=== PATIENT | female | born 1985 | race Caucasian/White ===

== ENCOUNTER 2017-09-22 11:31 | Emergency (ER) | payer OTHER ==
[~2017-09-22] VITALS: Ht 160 cm; Wt 50.8 kg
[2017-09-22 12:30] LABS: HEMATOCRIT 39.6 % (36.0-46.0); HEMOGLOBIN 14.3 G/DL (11.9-15.5); MCH 32.7 PG (29.0-34.0); MCHC 36.1 G/DL (30.0-36.0); MCV 90.6 FL (83-99); PLATELET COUNT 217 K/uL (156-360); RBC DIS.WIDTH-CV 10.9 % (11.8-14.6); RBC DIS.WIDTH-SD 35.9 % (39-53); RED BLOOD COUNT 4.37 M/uL (3.80-5.20); WHITE BLOOD COUNT 6.7 K/uL (4.1-10.2)
[2017-09-22 17:51] VITALS: BP 112/75
== END 2017-09-22 17:51 | disposition home or self-care (01) ==
LOC: EME 11:31
DX: O03.9 Complete or unspecified spontaneous abortion without complication (principal); F17.200 Nicotine dependence, unspecified, uncomplicated; Z3A.01 Less than 8 weeks gestation of pregnancy
CPT/HCPCS: 76801; 81003; 84702; 85027; 99281; 99284

== ENCOUNTER 2017-11-10 14:19 | Emergency (ER) | payer OTHER ==
[~2017-11-10 14:19] MED LIST: EXCEDRIN EXTRA1 EACH PO
== END 2017-11-10 14:29 | disposition left against medical advice (07) ==
LOC: EME 14:19
DX: Z53.21 Procedure and treatment not carried out due to patient leaving prior to being seen by health care provider (principal)

== ENCOUNTER 2017-11-12 07:41 | Day surgery (SDC) | payer OTHER ==
[~2017-11-12] VITALS: Ht 160 cm; Wt 49.0 kg
[2017-11-12 08:05] VITALS: BP 113/68
[2017-11-12 08:35] LABS: APPEARANCE SL.HAZY ((CLEAR)); COLOR YELLOW ((YELLOW))
[2017-11-12 08:36] LABS: BILIRUBIN NEGATIVE; GLUCOSE (STRIP) NEGATIVE; KETONES NEGATIVE; PROTEIN (STRIP) TRACE; SPECIFIC GRAVITY 1.025 (1.000-1.030); UROBILINOGEN 0.2 MG/DL (0.2-1.0)
[2017-11-12 08:37] LABS: BLOOD TRACE; LEUKOCYTES NEGATIVE; NITRITE NEGATIVE
[2017-11-12 08:48] LABS: BACTERIA RARE /HPF; EPITHELIAL CELLS 1+ /HPF; MUCUS NONE SEEN /LPF; RED BLOOD CELLS 0-5 /HPF (0-5); WHITE BLOOD CELLS RARE /HPF (0-5)
[2017-11-12] MEDS ORDERED: IBUPROFEN800 MG PO (08:50)
[2017-11-12] MEDS ORDERED: ENDOCET 5-3251 EACH PO (08:50)
[2017-11-12 11:40] VITALS: BP 104/75
[2017-11-12 12:14] VITALS: BP 110/60
== END 2017-11-12 12:14 | disposition home or self-care (01) ==
LOC: SDC
PROVIDERS: Obstetrics & Gynecology Gynecology
PROC: 0UBC7ZX Excision of Cervix, Via Natural or Artificial Opening, Diagnostic (ICD-10-PCS; principal; 2017-11-12)
DX: D06.0 Carcinoma in situ of endocervix (principal); D06.1 Carcinoma in situ of exocervix
CPT/HCPCS: 81003; 86850; 86900; 86901; 88307; 88342 TC; J1100; J1170; J1885; J2250; J2405